=== PATIENT | female | born 1995 | race Caucasian/White ===

== ENCOUNTER 2022-03-16 16:42 | Emergency (ER) | payer MEDICAID, OTHER ==
[2022-03-16] MEDS ORDERED: SODIUM CHLORIDE 0.9% 1000 ML 1,000 ML IV ONE (17:54)
--- NOTE | 2022-03-16 18:01 | Emergency Department Report ---
ED Altered Mental Status HPI - General Chief Complaint: Overdose Stated Complaint: DRUG INGESTION Time Seen by Provider: 03/16/22 17:20 Source: patient, EMS Mode of arrival: Stretcher Limitations: Altered Mental Status - History of Present Illness Initial Comments: 26-year-old female with history of retinal detachment presents to the emergency department complaining of feeling very weak and tired after taking what she reports as 1 "edible" gummy 2 hours prior to arrival.. She believes that the gummy had THC in it, but denies taking any other medications or drugs. Patient denies pain, chest pain, shortness of breath, nausea, vomiting, or any other symptoms. Patient denies depression, anxiety, suicidal ideations, or homicidal ideation. Patient denies hallucinations. Patient denies previous similar, and denies taking similar drugs in the past. Patient was given 1 mg of Narcan IV fluids prior to arrival, with no effect. Denies alleviating or aggravating factors. - Related Data Previous Rx's Medication Instructions Recorded Last Taken Type Acetaminophen with Codeine 1 tab PO Q6HR #30 tab 05/31/15 Unknown Rx [Acetaminophen-Codeine #4 TAB] Ferrous Sulfate [Feosol 325 MG tab] 325 mg PO BID #60 tablet 05/31/15 Unknown Rx Ibuprofen [Motrin 600 MG tab] 600 mg PO Q6H #30 tablet 05/31/15 Unknown Rx Allergies Allergy/AdvReac Type Severity Reaction Status Date / Time No Known Allergies Allergy Verified 05/30/15 04:17 ED Review of Systems ROS: Stated complaint: DRUG INGESTION Other details as noted in HPI Comment: Unobtainable due to pts medical conditions (Able to get history, patient is very sleepy) Constitutional: weakness. denies: chills, fever Eyes: denies: eye pain, eye discharge, vision change ENT: denies: ear pain, throat pain Respiratory: no symptoms reported. denies: cough, shortness of breath, wheezing Cardiovascular: denies: chest pain, palpitations Endocrine: no symptoms reported Gastrointestinal: denies: abdominal pain, nausea, diarrhea Genitourinary: denies: urgency, dysuria, discharge Musculoskeletal: denies: back pain, joint swelling, arthralgia Skin: denies: rash, lesions Neurological: other (Altered mental status prior to arrival). denies: headache, weakness, paresthesias, confusion Psychiatric: denies: anxiety, depression Hematological/Lymphatic: denies: easy bleeding, easy bruising ED Past Medical Hx - Past Medical History Hx Hypertension: No Hx Congestive Heart Failure: No Hx Diabetes: No Hx Deep Vein Thrombosis: No Hx Renal Disease: No Hx Sickle Cell Disease: No Hx Seizures: No Hx Asthma: No Hx COPD: No Hx HIV: No Additional medical history: Right retinal detachment - Social History Smoking Status: Never Smoker - Medications Home Medications: Home Medications Medication Instructions Recorded Confirmed Last Taken Type Acetaminophen with Codeine 1 tab PO Q6HR #30 tab 05/31/15 Unknown Rx [Acetaminophen-Codeine #4 TAB] Ferrous Sulfate [Feosol 325 MG tab] 325 mg PO BID #60 tablet 05/31/15 Unknown Rx Ibuprofen [Motrin 600 MG tab] 600 mg PO Q6H #30 tablet 05/31/15 Unknown Rx ED Physical Exam - General Limitations: Altered Mental Status, Physical Limitation General appearance: alert, in no apparent distress, appears intoxicated - Head Head exam: Present: atraumatic, normocephalic - Eye Eye exam: Present: normal appearance, PERRL, EOMI, other (Right eye is surgical secondary to retinal detachment) - ENT ENT exam: Present: mucous membranes moist - Neck Neck exam: Present: normal inspection - Respiratory Respiratory exam: Present: normal lung sounds bilaterally. Absent: respiratory distress - Cardiovascular Cardiovascular Exam: Present: regular rate, normal rhythm. Absent: systolic murmur, diastolic murmur, rubs, gallop - GI/Abdominal GI/Abdominal exam: Present: soft, normal bowel sounds - Extremities Exam Extremities exam: Present: normal inspection - Back Exam Back exam: Present: normal inspection - Neurological Exam Neurological exam: Present: alert, oriented X3, CN II-XII intact, other (Patient is very sleepy, but easily arousable) - Psychiatric Psychiatric exam: Present: normal affect, normal mood - Skin Skin exam: Present: warm, dry, intact, normal color. Absent: rash ED Course Vital Signs 03/16/22 03/16/22 17:04 19:15 Temperature 98.7 F 98 F Pulse Rate 65 88 Respiratory 14 18 Rate Blood Pressure 114/65 122/76 [Left] O2 Sat by Pulse 98 100 Oximetry - Reevaluation(s) Reevaluation #1: 03/16/22 20:51 Patient had improvement of her symptoms, was able to wake up and give her fami ly's phone numbers, and ambulated around the emergency department without assistance. Patient's mother was called, and she was able to pick the patient up. - Lab Data Result diagrams: 03/16/22 19:14 03/16/22 19:14 Lab Results 03/16/22 03/16/22 03/16/22 Range/Units 19:14 19:14 19:14 WBC 8.2 (4.5-11.0) K/mm3 RBC 4.00 (3.65-5.03) M/mm3 Hgb 12.0 (10.1-14.3) gm/dl Hct 35.6 (30.3-42.9) % MCV 89 (79-97) fl MCH 30 (28-32) pg MCHC 34 (30-34) % RDW 13.2 (13.2-15.2) % Plt Count 219 (140-440) K/mm3 Lymph % (Auto) 10.9 L (13.4-35.0) % [place] % (Auto) 5.3 (0.0-7.3) % Eos % (Auto) 0.3 (0.0-4.3) % Baso % (Auto) 0.3 (0.0-1.8) % Lymph # (Auto) 0.9 L (1.2-5.4) K/mm3 [place] # (Auto) 0.4 (0.0-0.8) K/mm3 Eos # (Auto) 0.0 (0.0-0.4) K/mm3 Baso # (Auto) 0.0 (0.0-0.1) K/mm3 Seg Neutrophils % 83.2 H (40.0-70.0) % Seg Neutrophils # 6.8 (1.8-7.7) K/mm3 Sodium 137 (137-145) mmol/L Potassium 4.5 (3.6-5.0) mmol/L Chloride 101.1 (98-107) mmol/L Carbon Dioxide 25 (22-30) mmol/L Anion Gap 15 mmol/L BUN 10 (7-17) mg/dL Creatinine 0.6 (0.6-1.2) mg/dL Estimated GFR > 60 ml/min BUN/Creatinine Ratio 17 % Glucose 100 (65-100) mg/dL Calcium 9.0 (8.4-10.2) mg/dL Plasma/Serum Alcohol < 0.01 (0-0.07) % - Medical Decision Making Patient is a 26-year-old healthy female who presents with reported altered men gisela status after eating a THC gummy 2 hours prior to arrival. Patient was given 1 mg of Narcan by EMS, with no improvement of her presentation. Patient's vital signs upon presentation are within normal limits, and her physical exam is only concerning for being very sleepy. Critical care attestation.: If time is entered above; I have spent that time in minutes in the direct care of this critically ill patient, excluding procedure time. ED Disposition Clinical Impression: Excessive sleepiness, Marijuana use Disposition: 01 HOME / SELF CARE / HOMELESS Is pt being admited?: No Condition: Stable Instructions: What You Need to Know About Marijuana Use, Hypersomnia Referrals: MARINA MAXWELL MD [Staff Physician] - 3-5 Days Time of Disposition: 20:04
[2022-03-16 19:52] LABS: Basophils % (Auto) 0.3 % (0.0-1.8); Eosinophils % (Auto) 0.3 % (0.0-4.3); Hematocrit 35.6 % (30.3-42.9); Lymphocytes # (Auto) 0.9 K/mm3 (1.2-5.4); Lymphocytes % (Auto) 10.9 % (13.4-35.0); Mean Corpuscular HGB Conc 34 % (30-34); Mean Corpuscular Volume 89 fl (79-97); Monocytes # (Auto) 0.4 K/mm3 (0.0-0.8); Monocytes % (Auto) 5.3 % (0.0-7.3); Platelet Count 219 K/mm3 (140-440); Red Cell Distribution Width 13.2 % (13.2-15.2)
[2022-03-16 20:02] LABS: Blood Urea Nitrogen 10 mg/dL (7-17); Hemolysis Index 7
[2022-03-16 20:05] LABS: BUN/Creatinine Ratio 17
[2022-03-16 20:40] VITALS: BP 122/76
== END 2022-03-16 20:41 | disposition home or self-care (01) ==
LOC: ED 16:42
DX: R40.0 Somnolence (principal); F12.90 Cannabis use, unspecified, uncomplicated
CPT/HCPCS: 36415; 80048; 80320; 85025; 96360; 96361; 99284; G0480